=== PATIENT | male | born 1950 | race Caucasian/White ===

== ENCOUNTER 2022-02-27 23:48 | Inpatient (IN) | payer MEDICARE, OTHER ==
[~2022-02-27] VITALS: Ht 167.6 cm; Wt 65.8 kg
[~2022-02-27 23:48] MED LIST: RIVA20TA PO
[2022-02-28] MEDS ORDERED: IV NORMAL SALINE 1000 ML BAG IV ONE (00:15)
[2022-02-28] MEDS ORDERED: APIX5TAB4 PO (00:20)
[2022-02-28 00:38] LABS: CARBON DIOXIDE 22 mmol/L (21-32); CHLORIDE 108 mmol/L (98-107); CREATININE 1.3 mg/dL (0.6-1.3); GLUCOSE 126 mg/dL (74-106); POTASSIUM 3.5 mmol/L (3.5-5.1); UREA NITROGEN, BLOOD 16 mg/dL (7-18)
[2022-02-28 00:44] LABS: HEMATOCRIT 36.8 % (36.7-47.1); MEAN CORPUSCULAR HEMOGLOBIN 32.3 uug (23.8-33.4); MEAN CORPUSCULAR VOLUME 93.5 fL (73.0-96.2); PLATELET COUNT (AUTO) 184 K/uL (152-348)
[2022-02-28 00:54] LABS: ALANINE AMINOTRANSFERASE 38 U/L (16-63); ALKALINE PHOSPHATASE 46 U/L (50-136); ASPARTATE AMINOTRANSFERASE 28 U/L (15-37); BILIRUBIN,DIRECT 0.1 mg/dL (0.0-0.2); BILIRUBIN,TOTAL 0.3 mg/dL (0.2-1.0); TOTAL PROTEIN, SERUM 6.5 g/dL (6.4-8.2)
[2022-02-28] MEDS ORDERED: IOHEXOL 350 100 ML INFUS..BTL ONE (01:07)
[2022-02-28] MEDS ORDERED: IV NORMAL SALINE 250 ML IV ONE (01:07)
[2022-02-28] MEDS ORDERED: SWABABLE VALVE TRANSFER SET EA MC ONE (01:07)
[2022-02-28] MEDS ORDERED: ENOXAPARIN SODIUM 60 MG/0.6 ML DISP.SYRIN SQ ONE ×2 (02:00→02:14)
[2022-02-28] MEDS ORDERED: ONDANSETRON 4 MG/2 ML VIAL IV PRN (02:30)
[2022-02-28] MEDS ORDERED: REMEDY ESSENTIAL ZINC PASTE 113 GM TP PRN (02:30)
[2022-02-28] MEDS ORDERED: MAGNESIUM HYDROXIDE 30 ML LIQUID UDC PO PRN (02:30)
[2022-02-28] MEDS ORDERED: IV NS 1000 ML 1,000 ML IV PRN (02:30)
[2022-02-28] MEDS ORDERED: ACETAMINOPHEN 325 MG TABLET PO PRN (02:30)
--- NOTE | 2022-02-28 02:33 | NUR ---
Called 3rd fl for TELE bed. RM # pending.
[2022-02-28 02:39] LABS: *BILIRUBIN,URIN NEGATIVE (NEGATIVE); *BLOOD, URINE NEGATIVE (NEGATIVE); *CLARITY,URINE CLEAR (CLEAR); *COLOR,URINE YELLOW (YELLOW); *KETONES,URINE NEGATIVE (NEGATIVE); *UROBILINOGEN,URINE 0.2 E.U./dl (NORMAL); LEUKOCYTE ESTERASE ,URINE NEGATIVE (NEGATIVE); NITRITE, URINE NEGATIVE (NEGATIVE); PH,URINE 6.5 (5.0-8.0); UGLUCOSE NEGATIVE (NEGATIVE)
--- NOTE | 2022-02-28 04:10 | NUR ---
Admitted a 71 years old male with Dx of Syncope. Patient AAOx4. In no apparent distress. Denies any pain or SOB. NSR on tele with HR of 68/min. IV site on left AC intact and patent. Instructed on bedrest per [employer] Wilstein order and patient states understanding. Routine admission care done. Plan of care initiated. Safety measure discussed with patient and initiated. Call light within reached.
[2022-02-28 05:06] VITALS: BP 137/73
--- NOTE | 2022-02-28 06:24 | NUR ---
Patient asleep at this time but easily arouse to verbal stimuli. In no acute distress. NSR on tele with HR of 63/min. Needs attended to and met. Safety measure maintained.
[2022-02-28] MEDS ORDERED: PANTOPRAZOLE SODIUM 40 MG TABLET.DR PO SCH (07:00)
[2022-02-28 07:02] LABS: HEMATOCRIT 35.4 % (36.7-47.1); MEAN CORPUSCULAR HEMOGLOBIN 32.2 uug (23.8-33.4); MEAN CORPUSCULAR VOLUME 92.6 fL (73.0-96.2); PLATELET COUNT (AUTO) 189 K/uL (152-348)
[2022-02-28 07:32] LABS: CREATININE 1.2 mg/dL (0.6-1.3); POTASSIUM 4.5 mmol/L (3.5-5.1)
[2022-02-28 07:38] LABS: BILIRUBIN,TOTAL 0.2 mg/dL (0.2-1.0); PHOSPHOROUS 2.9 mg/dL (2.5-4.9); TOTAL PROTEIN, SERUM 6.3 g/dL (6.4-8.2)
[2022-02-28 08:03] LABS: THYROID STIMULATING HORMONE 1.453 mIU/mL (0.358-3.740)
[2022-02-28] MEDS ORDERED: APIXABAN 5 MG TABLET PO SCH (09:00)
--- NOTE | 2022-02-28 11:00 | NUR ---
seen by hospitalist and dr miranda and cleared for discharge, case coordinator made aware
[2022-02-28 11:06] VITALS: BP 130/72
[2022-02-28] MEDS ORDERED: APIXABAN 2.5 MG TABLET PO SCH (12:30)
--- NOTE | 2022-02-28 13:24 | NUR ---
discharged home stable accompanied by
== END 2022-02-28 13:00 | disposition home or self-care (01) | DRG 640 ==
LOC: ER 23:52 → TELE3 02-28 02:20
PROVIDERS: ADMIT Internal Medicine; ATTEND Internal Medicine
DX: E86.0 Dehydration (principal); N17.0 Acute kidney failure with tubular necrosis; R55 Syncope and collapse; Z86.711 Personal history of pulmonary embolism; Z79.01 Long term (current) use of anticoagulants; D64.9 Anemia, unspecified; Z91.199 Patient's noncompliance with other medical treatment and regimen due to unspecified reason; Z20.822 Contact with and (suspected) exposure to COVID-19
CPT/HCPCS: 36415; 71275; 83735; 84100; 84443; 84484; 85025; 85730; 93005; 93880; A4663; G0378; J1650; J7040; Q9967